=== PATIENT | male | born 1975 | race Caucasian/White ===

== ENCOUNTER 2021-05-06 18:42 | Emergency (ER) | payer OTHER, SELFPAY ==
[~2021-05-06] VITALS: Ht 180.3 cm; Wt 104.5 kg
--- NOTE | 2021-05-06 21:30 | REPVR ---
PROCEDURE INFORMATION: Exam: XR Left Clavicle, Complete Exam date and time: 05/06/2021 7:36 PM Age: 46 years old Clinical indication: Pain; Shoulder; Left; Additional info: Trauma TECHNIQUE: Imaging protocol: XR Left clavicle complete. Views: Any number of views. COMPARISON: No relevant prior studies available. FINDINGS: Bones/joints: Fracture mid left clavicle. Otherwise unremarkable. Soft tissues: Normal. IMPRESSION: Fracture mid left clavicle. Electronically signed by: Domenico Machuca On 05/06/2021 21:30:14 PM
--- NOTE | 2021-05-06 21:33 | REPVR ---
PROCEDURE INFORMATION: Exam: XR Left Shoulder Exam date and time: 05/06/2021 7:36 PM Age: 46 years old Clinical indication: Pain; Shoulder; Left; Additional info: Trauma TECHNIQUE: Imaging protocol: XR Left shoulder. Views: 2 or more views. COMPARISON: No relevant prior studies available. FINDINGS: Bones/joints: Mid clavicle fracture on the left. Otherwise unremarkable. Soft tissues: Normal. IMPRESSION: Mid clavicle fracture on the left. Electronically signed by: Domenico Machuca On 05/06/2021 21:33:39 PM
[2021-05-06] MEDS ORDERED: ACETAMINOPHEN 325 MG TAB PO ONE (22:30)
--- NOTE | 2021-05-06 23:40 | REPVR ---
PROCEDURE INFORMATION: Exam: XR Chest Exam date and time: 05/06/2021 10:40 PM Age: 46 years old Clinical indication: Other: Crepitus TECHNIQUE: Imaging protocol: XR of the chest. Views: 2 views. COMPARISON: CR Clavicle LEFT 05/06/2021 7:57 PM FINDINGS: Lungs: Degree of inflation of the lungs is normal. No evidence of pulmonary edema. No focal airspace process. No concerning parenchymal lung mass. Pleural spaces: No pleural effusion or pneumothorax. Heart/Mediastinum: Cardiac silhouette appears normal. No mediastinal adenopathy or hilar mass. Bones/joints: Acute incomplete greenstick type fracture, mid left clavicle with mild apex cephalad angulation Osseous structures show no other acute or concerning abnormality. Multi-level, age-related thoracic degenerative disc disease is present. IMPRESSION: No active or focal cardiopulmonary process. Midshaft left clavicle fracture, nondisplaced, mild apex cephalad angulation Electronically signed by: Vasiliy Bledsoe On 05/06/2021 23:40:15 PM
[2021-05-07 00:24] VITALS: BP 168/90
== END 2021-05-07 00:24 | disposition home or self-care (01) ==
LOC: M ED 18:42
DX: S42.002A Fracture of unspecified part of left clavicle, initial encounter for closed fracture (principal); W18.39XA Other fall on same level, initial encounter; Y92.410 Unspecified street and highway as the place of occurrence of the external cause; I10 Essential (primary) hypertension; F17.210 Nicotine dependence, cigarettes, uncomplicated

== ENCOUNTER → 2022-11-20 | Outpatient (CLI) | payer MEDICAID | LOC: M OUTALCOH 07:55 | PROVIDERS: ATTEND Psychiatry & Neurology Psychiatry | DX: Z03.89 Encounter for observation for other suspected diseases and conditions ruled out (principal) ==